=== PATIENT | male | born 1990 | race African-American/Black ===

== ENCOUNTER 2017-09-29 04:26 | Emergency (ER) | payer SELFPAY ==
[~2017-09-29] VITALS: Ht 190.5 cm; Wt 75.0 kg
[2017-09-29] MEDS ORDERED: CYCLOBENZAPRINE HCL 10 MG TABLET PO ONE (06:30)
[2017-09-29] MEDS ORDERED: OxyCODONE HCL/ACETAMINOPHEN 5-325 MG TABLET PO ONE (06:30)
[2017-09-29 07:28] VITALS: BP 144/92
== END 2017-09-29 07:34 | disposition home or self-care (01) ==
LOC: EMS 04:27
DX: S16.1XXA Strain of muscle, fascia and tendon at neck level, initial encounter (principal); S46.911A Strain of unspecified muscle, fascia and tendon at shoulder and upper arm level, right arm, initial encounter; F12.90 Cannabis use, unspecified, uncomplicated; F17.210 Nicotine dependence, cigarettes, uncomplicated; X58.XXXA Exposure to other specified factors, initial encounter; Y93.89 Activity, other specified; Y92.89 Other specified places as the place of occurrence of the external cause; Y99.8 Other external cause status
CPT/HCPCS: 99283

== ENCOUNTER 2018-05-30 13:26 | Inpatient (IN) | payer MEDICAID ==
[~2018-05-30] VITALS: Ht 188 cm; Wt 70.4 kg
[2018-05-30] MEDS ORDERED: HALOPERIDOL LACTATE 5 MG/ML VIAL IM ONE (14:00)
[2018-05-30] MEDS ORDERED: DiphenhydrAMINE HCL 50 MG/ML VIAL IM ONE (14:00)
[2018-05-30] MEDS ORDERED: LORazepam 2 MG/ML VIAL IM ONE (14:00)
[2018-05-30 15:43] LABS: BASOPHILS % (AUTO) 1.2 % (0.0-2.0); EOSINOPHILS % (AUTO) 2.1 % (1.0-6.0); HEMATOCRIT 48.5 % (41-53); HEMOGLOBIN 16.1 g/dL (13.5-17.5); LYMPHOCYTES # (AUTO) 1.3 K/uL (1.0-4.8); LYMPHOCYTES % (AUTO) 30.3 % (22.0-44.0); MEAN CORPUSCULAR HEMOGLOBIN 30.7 pg (26.0-34.0); MEAN CORPUSCULAR HGB CONC 33.3 G/dL (31.0-37.0); MEAN CORPUSCULAR VOLUME 92 fL (80-100); MONOCYTES # (AUTO) 0.4 K/uL (0.1-1.0); MONOCYTES % (AUTO) 8.7 % (2.0-9.0); NEUTROPHILS # (AUTO) 2.5 K/uL (1.8-7.7); NEUTROPHILS % (AUTO) 57.7 % (40.0-70.0); PLATELET COUNT (AUTO) 172 K/uL (150-450); RED BLOOD CELL COUNT(AUTO) 5.27 MIL/uL (4.50-5.90); RED CELL DISTRIBUTION WIDTH 13.9 % (11.5-14.5)
[2018-05-30 15:52] LABS: ANION GAP 6 mmol/L (8-16); CALCIUM, TOTAL 9.2 mg/dL (8.8-10.5); CARBON DIOXIDE 33 mmol/L (22-29); CHLORIDE 108 mmol/L (98-107); CREATININE 0.98 mg/dL (0.60-1.30); GLOMERULAR FILTR. RATE CALC > 60 mL/min (>60); GLUCOSE,RANDOM 86 mg/dL (70-110); POTASSIUM 4.7 mmol/L (3.5-5.1); SODIUM SERUM 147 mmol/L (136-145); UREA NITROGEN, BLOOD 7 mg/dL (7-18)
[2018-05-30 15:57] LABS: ALANINE AMINOTRANSFERASE 25 U/L (12-78); ALBUMIN 3.4 g/dL (3.4-5.0); ALKALINE PHOSPHATASE 56 U/L (46-116); ASPARTATE AMINOTRANSFERASE 26 U/L (15-37); BILIRUBIN,TOTAL 0.4 mg/dL (0.1-1.0); TOTAL PROTEIN, SERUM 6.7 g/dL (6.4-8.2)
[2018-05-30] MEDS ORDERED: LORazepam 2 MG TABLET PO PRN (17:15)
[2018-05-30] MEDS ORDERED: HALOPERIDOL 5 MG TABLET PO PRN (17:15)
[2018-05-30 19:12] VITALS: BP 128/81
[2018-05-30] MEDS ORDERED: CloNIDine HCL 0.1 MG TABLET PO PRN (19:15)
[2018-05-30] MEDS ORDERED: ALBUTEROL SULFATE HFA 90 MCG/PUFF 8 GM INHALER IH PRN (19:15)
[2018-05-30] MEDS ORDERED: MAG HYDROX/AL HYDROX/SIMETH ES 30 ML SUSPENSION UDCUP PO PRN (19:15)
[2018-05-30] MEDS ORDERED: LOPERAMIDE HCL 2 MG CAPSULE PO PRN (19:15)
[2018-05-30] MEDS ORDERED: PETROLATUM,WHITE 71 GM JELLY TP PRN (19:15)
[2018-05-30] MEDS ORDERED: NICOTINE 14 MG/24 HOUR PATCH TD PRN (19:15)
[2018-05-30] MEDS ORDERED: MAGNESIUM HYDROXIDE SUSPENSION 30 ML UDCUP PO PRN (19:15)
[2018-05-30] MEDS ORDERED: ONDANSETRON HCL 4 MG TABLET PO PRN (19:15)
[2018-05-30] MEDS ORDERED: GuaiFENesin/D-METHORPHAN [SUGAR-FREE] 200-20MG/10 ML SYRUP UDCUP PO PRN (19:15)
[2018-05-30] MEDS ORDERED: DOCUSATE SODIUM 100 MG CAPSULE PO PRN (19:15)
[2018-05-30] MEDS ORDERED: ACETAMINOPHEN 325 MG TABLET PO PRN (19:15)
[2018-05-30] MEDS: ZOLPIDEM TARTRATE 10 MG TABLET PO PRN (20:39)
[2018-05-31 03:17] VITALS: BP 116/76
[2018-05-31 08:06] VITALS: BP 119/62
[2018-05-31 09:02] LABS: CHOL/HDL RATIO 1.6 (4.2-7.3); HEMOGLOBIN A1C 4.6 % (4.5-6.2); THYROID STIMULATING HORMONE 0.66 uIU/mL (0.36-3.74)
[2018-05-31 16:09] VITALS: BP 122/81
[2018-06-01 05:59] VITALS: BP 117/78
[2018-06-01] MEDS: IBUPROFEN 400 MG TABLET PO PRN ×2 (10:05→20:10)
[2018-06-01 10:32] VITALS: BP 123/82
[2018-06-01 16:31] VITALS: BP 126/86
[2018-06-01] MEDS: ZOLPIDEM TARTRATE 10 MG TABLET PO PRN (20:10)
[2018-06-02 01:52] VITALS: BP 115/67
[2018-06-02 08:08] VITALS: BP 122/66
[2018-06-02] MEDS: IBUPROFEN 400 MG TABLET PO PRN (09:28)
== END 2018-06-02 16:05 | disposition home or self-care (01) | DRG 750 ==
LOC: EMS 13:27 → B3A 17:25
PROVIDERS: ADMIT Psychiatry & Neurology Psychiatry; ATTEND Psychiatry & Neurology Psychiatry
DX: F20.9 Schizophrenia, unspecified (principal); E87.0 Hyperosmolality and hypernatremia; R45.851 Suicidal ideations; F17.200 Nicotine dependence, unspecified, uncomplicated; F10.10 Alcohol abuse, uncomplicated; Y90.4 Blood alcohol level of 80-99 mg/100 ml; D72.819 Decreased white blood cell count, unspecified; Z78.1 Physical restraint status; G47.00 Insomnia, unspecified; F41.9 Anxiety disorder, unspecified; F12.90 Cannabis use, unspecified, uncomplicated
CPT/HCPCS: 83036; 84443; 96372; 99291; G0480; J1200; J1630; J2060

== ENCOUNTER 2018-06-12 20:16 | Emergency (ER) | payer MEDICAID ==
[~2018-06-12] VITALS: Ht 188 cm; Wt 72.7 kg
[2018-06-12] MEDS ORDERED: AMOX TR/POT CLAV 500 MG/125 MG TABLET PO ONE (21:15)
[2018-06-12] MEDS ORDERED: OXYMETAZOLINE HCL 0.05% 15 ML NASAL SPRAY NASAL ONE (21:15)
[2018-06-12] MEDS ORDERED: ACETAMINOPHEN 500 MG TABLET PO ONE (21:15)
[2018-06-12 21:21] LABS: INFLUENZA TYPE A NEGATIVE FOR TYPE A (NEGATIVE); INFLUENZA TYPE B NEGATIVE FOR TYPE B (NEGATIVE)
[2018-06-12 21:54] VITALS: BP 133/86
== END 2018-06-12 21:56 | disposition home or self-care (01) ==
LOC: EMS 20:17
DX: J01.00 Acute maxillary sinusitis, unspecified (principal); F12.90 Cannabis use, unspecified, uncomplicated; F17.210 Nicotine dependence, cigarettes, uncomplicated
CPT/HCPCS: 87804; 99406

== ENCOUNTER 2018-09-17 19:04 | Inpatient (IN) | payer MEDICAID ==
[~2018-09-17] VITALS: Ht 190.5 cm; Wt 79.8 kg
[2018-09-18 00:19] VITALS: BP 114/85
[2018-09-18] MEDS: HALOPERIDOL 5 MG TABLET PO PRN (00:54)
[2018-09-18] MEDS: ZOLPIDEM TARTRATE 10 MG TABLET PO PRN ×2 (00:54→21:08)
[2018-09-18] MEDS ORDERED: DOCUSATE SODIUM 100 MG CAPSULE PO PRN (06:30)
[2018-09-18] MEDS ORDERED: MAG HYDROX/AL HYDROX/SIMETH ES 30 ML SUSPENSION UDCUP PO PRN (06:30)
[2018-09-18] MEDS ORDERED: CloNIDine HCL 0.1 MG TABLET PO PRN (06:30)
[2018-09-18] MEDS ORDERED: NICOTINE 14 MG/24 HOUR PATCH TD PRN (06:30)
[2018-09-18] MEDS ORDERED: GuaiFENesin/D-METHORPHAN [SUGAR-FREE] 200-20MG/10 ML SYRUP UDCUP PO PRN (06:30)
[2018-09-18] MEDS ORDERED: ONDANSETRON HCL 4 MG TABLET PO PRN (06:30)
[2018-09-18] MEDS ORDERED: IBUPROFEN 400 MG TABLET PO PRN (06:30)
[2018-09-18] MEDS ORDERED: ACETAMINOPHEN 325 MG TABLET PO PRN (06:30)
[2018-09-18] MEDS ORDERED: LOPERAMIDE HCL 2 MG CAPSULE PO PRN (06:30)
[2018-09-18] MEDS ORDERED: PETROLATUM,WHITE 71 GM JELLY TP PRN (06:30)
[2018-09-18] MEDS ORDERED: ALBUTEROL SULFATE HFA 90 MCG/PUFF 8 GM INHALER IH PRN (06:30)
[2018-09-18] MEDS ORDERED: MAGNESIUM HYDROXIDE SUSPENSION 30 ML UDCUP PO PRN (06:30)
[2018-09-18 08:35] VITALS: BP 102/63
[2018-09-18] MEDS: LORazepam 2 MG TABLET PO PRN (13:34)
[2018-09-18 14:30] VITALS: BP 115/63
[2018-09-18 16:00] VITALS: BP 111/67
[2018-09-18] MEDS: CIPROFLOXACIN HCL 0.3% 2.5 ML OPHTHALMIC SOLUTION OS SCH (17:03)
[2018-09-18] MEDS: MIRTAZAPINE 15 MG TABLET PO SCH (21:08)
[2018-09-18 23:20] VITALS: BP 110/65
[2018-09-19 03:31] VITALS: BP 116/72
[2018-09-19 03:35] VITALS: BP 116/72
[2018-09-19 08:02] VITALS: BP 115/68
[2018-09-19 08:04] VITALS: BP 115/58
[2018-09-19] MEDS: CIPROFLOXACIN HCL 0.3% 2.5 ML OPHTHALMIC SOLUTION OS SCH ×3 (08:41→16:52)
[2018-09-19] MEDS ORDERED: ARIPiprazole 10 MG TABLET PO SCH (09:00)
[2018-09-19 16:02] VITALS: BP 112/73
[2018-09-19 16:07] VITALS: BP 112/73
[2018-09-19] MEDS: HALOPERIDOL 5 MG TABLET PO PRN (16:52)
[2018-09-19] MEDS: LORazepam 2 MG TABLET PO PRN ×2 (16:52→20:54)
[2018-09-19] MEDS: ZOLPIDEM TARTRATE 10 MG TABLET PO PRN (20:54)
[2018-09-19] MEDS: MIRTAZAPINE 15 MG TABLET PO SCH (20:54)
[2018-09-20 01:10] VITALS: BP 118/79
[2018-09-20 01:17] VITALS: BP 118/79
[2018-09-20 08:00] VITALS: BP 119/69
[2018-09-20] MEDS: CIPROFLOXACIN HCL 0.3% 2.5 ML OPHTHALMIC SOLUTION OS SCH ×3 (08:02→16:19)
[2018-09-20 08:34] VITALS: BP 119/69
[2018-09-20] MEDS ORDERED: ARIPiprazole 15 MG TABLET PO SCH (09:00)
[2018-09-20] MEDS: LORazepam 2 MG TABLET PO PRN ×3 (12:19→20:51)
[2018-09-20 16:00] VITALS: BP 122/82
[2018-09-20] MEDS: HALOPERIDOL 5 MG TABLET PO PRN (16:19)
[2018-09-20 17:45] VITALS: BP 122/82
[2018-09-20] MEDS: MIRTAZAPINE 30 MG TABLET PO SCH (20:51)
[2018-09-20] MEDS: ZOLPIDEM TARTRATE 10 MG TABLET PO PRN (20:51)
[2018-09-21 05:13] VITALS: BP 118/72
[2018-09-21 05:14] VITALS: BP 118/72
[2018-09-21 08:42] VITALS: BP 130/66
[2018-09-21 08:43] VITALS: BP 130/66
[2018-09-21] MEDS: CIPROFLOXACIN HCL 0.3% 2.5 ML OPHTHALMIC SOLUTION OS SCH ×3 (08:48→16:11)
[2018-09-21] MEDS: ARIPiprazole 10 MG TABLET PO SCH (08:48)
[2018-09-21 16:00] VITALS: BP 125/71
[2018-09-21 16:29] VITALS: BP 125/71
[2018-09-21] MEDS: HALOPERIDOL 5 MG TABLET PO PRN (20:27)
[2018-09-21] MEDS: LORazepam 2 MG TABLET PO PRN (20:27)
[2018-09-21] MEDS: MIRTAZAPINE 30 MG TABLET PO SCH (20:29)
[2018-09-22 01:29] VITALS: BP 110/85
[2018-09-22 01:34] VITALS: BP 110/85
[2018-09-22] MEDS: LORazepam 2 MG TABLET PO PRN (04:34)
[2018-09-22] MEDS ORDERED: ARIP10TA8 PO (08:02)
[2018-09-22] MEDS ORDERED: MIRT30 PO (08:02)
[2018-09-22] MEDS: ARIPiprazole 10 MG TABLET PO SCH (08:39)
[2018-09-22] MEDS: CIPROFLOXACIN HCL 0.3% 2.5 ML OPHTHALMIC SOLUTION OS SCH (08:40)
[2018-09-22 08:42] VITALS: BP 118/76
[2018-09-22 08:44] VITALS: BP 118/70
[2018-09-22] MEDS ORDERED: CILO2.5OS OS (08:48)
== END 2018-09-22 10:45 | disposition home or self-care (01) | DRG 750 ==
LOC: B3A 21:36
PROVIDERS: ADMIT Psychiatry & Neurology Psychiatry; ATTEND Psychiatry & Neurology Psychiatry
DX: F25.0 Schizoaffective disorder, bipolar type (principal); Z91.19 Patient's noncompliance with other medical treatment and regimen; F10.20 Alcohol dependence, uncomplicated; F17.200 Nicotine dependence, unspecified, uncomplicated; F19.90 Other psychoactive substance use, unspecified, uncomplicated; F41.9 Anxiety disorder, unspecified; H01.006 Unspecified blepharitis left eye, unspecified eyelid; Z91.5 Personal history of self-harm
CPT/HCPCS: 90686

== ENCOUNTER 2019-05-30 00:52 | Inpatient (IN) | payer MEDICAID ==
[~2019-05-30] VITALS: Ht 190.5 cm; Wt 74.8 kg
[~2019-05-30 00:52] MED LIST: ARIP10TA8 PO; CILO2.5OS OS; MIRT30 PO
[2019-05-30] MEDS ORDERED: ZOLPIDEM TARTRATE 10 MG TABLET PO PRN (02:00)
[2019-05-30] MEDS ORDERED: LORazepam 2 MG TABLET PO PRN (02:00)
[2019-05-30] MEDS ORDERED: QUEtiapine FUMARATE 100 MG TABLET PO PRN (02:00)
[2019-05-30 02:28] VITALS: BP 129/72
[2019-05-30] MEDS ORDERED: INFLUENZA VIRUS VACCINE QVS 2019-20 (3YR+)/PF 60 MCG/0.5 ML SYRINGE IM ONE (04:00)
[2019-05-30 08:24] VITALS: BP 110/76
[2019-05-30] MEDS: ARIPiprazole 10 MG TABLET PO SCH (13:35)
[2019-05-30] MEDS ORDERED: IBUPROFEN 400 MG TABLET PO PRN (14:00)
[2019-05-30] MEDS ORDERED: GuaiFENesin/D-METHORPHAN [SUGAR-FREE] 200-20MG/10 ML SYRUP UDCUP PO PRN (14:00)
[2019-05-30] MEDS ORDERED: CloNIDine HCL 0.1 MG TABLET PO PRN (14:00)
[2019-05-30] MEDS ORDERED: MAGNESIUM HYDROXIDE SUSPENSION 30 ML UDCUP PO PRN (14:00)
[2019-05-30] MEDS ORDERED: NICOTINE 14 MG/24 HOUR PATCH TD PRN (14:00)
[2019-05-30] MEDS ORDERED: PETROLATUM,WHITE 28 GM JELLY TP PRN (14:00)
[2019-05-30] MEDS ORDERED: LOPERAMIDE HCL 2 MG CAPSULE PO PRN (14:00)
[2019-05-30] MEDS ORDERED: ACETAMINOPHEN 325 MG TABLET PO PRN (14:00)
[2019-05-30] MEDS ORDERED: ALBUTEROL SULFATE HFA 90 MCG/PUFF 8 GM INHALER IH PRN (14:00)
[2019-05-30] MEDS ORDERED: ONDANSETRON HCL 4 MG TABLET PO PRN (14:00)
[2019-05-30] MEDS ORDERED: MAG HYDROX/AL HYDROX/SIMETH ES 30 ML SUSPENSION UDCUP PO PRN (14:00)
[2019-05-30] MEDS ORDERED: DOCUSATE SODIUM 100 MG CAPSULE PO PRN (14:00)
[2019-05-30 16:11] VITALS: BP 116/76
[2019-05-30] MEDS: MIRTAZAPINE 30 MG TABLET PO SCH (21:00)
[2019-05-31 08:23] VITALS: BP 112/63
[2019-05-31] MEDS: ARIPiprazole 10 MG TABLET PO SCH (09:36)
[2019-05-31 16:12] VITALS: BP 111/81
[2019-05-31] MEDS: MIRTAZAPINE 30 MG TABLET PO SCH (20:05)
[2019-06-01 05:44] VITALS: BP 136/78
[2019-06-01] MEDS: ARIPiprazole 10 MG TABLET PO SCH (08:21)
[2019-06-01 08:48] VITALS: BP 137/88
== END 2019-06-01 10:45 | disposition home or self-care (01) | DRG 754 ==
LOC: B3A 01:10
PROVIDERS: ADMIT Psychiatry & Neurology Psychiatry; ATTEND Psychiatry & Neurology Psychiatry
DX: F32.9 Major depressive disorder, single episode, unspecified (principal); R45.851 Suicidal ideations; Z91.14 Patient's other noncompliance with medication regimen; F10.10 Alcohol abuse, uncomplicated; F17.200 Nicotine dependence, unspecified, uncomplicated; K59.00 Constipation, unspecified; Z79.899 Other long term (current) drug therapy; Z71.41 Alcohol abuse counseling and surveillance of alcoholic; Z28.21 Immunization not carried out because of patient refusal